=== PATIENT | female | born 1985 | race Hispanic/Latino ===

== ENCOUNTER 2017-01-11 06:10 | Day surgery (SDC) | payer OTHER ==
[2017-01-10 09:51] VITALS: BMI 18.3
[2017-01-11] MEDS ORDERED: Lidocaine Hydrochloride 5 ML INJ ONE (07:55)
[2017-01-11] MEDS ORDERED: Propofol 10 mg/ml Inj (20 ML) ONE (07:55)
[2017-01-11] MEDS ORDERED: Midazolam 2 MG/2 ML VIAL ONE (07:55)
[2017-01-11] MEDS ORDERED: Lactated Ringer's 500 ML IV ONE ×2 (08:20)
[2017-01-11] MEDS ORDERED: Oxycodone/Acetaminophen 5/325 mg Tab PO PRN (09:02)
--- NOTE | 2017-01-11 09:02 | PCM.SURG1 ---
Surgeon's Initial Post Op Note - Surgeon's Notes Surgeon: Steven Ramirez MD [employer] Press Setter Operator: none Type of Anesthesia: General LMA Pre-Operative Diagnosis: Missed 7 weeks Operative Findings: anterverted uterus 7-9 weeks, no adenxal masses, moderate amoutns of products of conception, good hemostasis Post-Operative Diagnosis: same as above Operation Performed: Suction Dilation and Curettage Specimen/Specimens Removed: products of conception Estimated Blood Loss: EBL {In ML}: 5 Blood Products Given: N/A Drains Used: No Drains, Chest Tubes Post-Op Condition: Good Date of Surgery/Procedure: 01/11/17 Time of Surgery/Procedure: 08:30
--- NOTE | 2017-01-11 11:04 | OP ---
PROCEDURE DATE: 01/11/2017 SURGEON: Dr. Janeth Ramirez DUST MOP MAKER: None. TYPE OF ANESTHESIA: General LMA. PREOPERATIVE DIAGNOSIS: Missed , 7 weeks. POSTOPERATIVE DIAGNOSIS: Missed , 7 weeks. OPERATIVE FINDINGS: Anteverted uterus, 7-9 weeks. No adnexal masses. Moderate amount of products o f conception. Good hemostasis. OPERATION PERFORMED: Suction dilation and curettage. SPECIMEN REMOVED: Products of conception. ESTIMATED BLOOD LOSS: 5 mL. BLOOD PRODUCTS: None. COMPLICATIONS: None. URINE OUTPUT: 30 mL of clear yellow urine. The patient was taken to the operating room where she was given general anesthesia. Once this was fo und be adequate, she was positioned on the operating table in dorsal supine position with the legs iniguez pported using stirrups. The patient was then prepped and draped in the usual normal sterile fashion. A timeout confirmed correct patient and correct procedure. Bimanual exam was performed with above- mentioned findings. A red rubber catheter was inserted into the urethra to drain the bladder. Mena retractor was placed in the anterior, posterior fornix of vagina and the cervix was adequately visual ized. A Teale tenaculum was placed in the anterior lip of the cervix and the uterus was then sounded to 8 cm. Following this, the cervix was sequentially dilated with the Gunnar dilators to allow for in troduction of the 7 mm curved suction curette, which was advanced to the fundus. The suction curetta ge was then activated and rotated 360 degrees. This was done 3 times until products of conceptions w ere removed. Following this, a gentle curettage was done 360 degrees and then following this, the iniguez ction curette was then reinserted and rotated 360 degrees until all products were removed and air el bles were noted within the curette. Following this, the Teale tenaculum was removed. There was good hemostasis noted at all sites. Bimanual exam was performed. Uterus was found to be firm. All inst ruments were removed. At the end of the procedure, all needle, sponge and instrument counts were not ed to be correct x 2. The patient tolerated the procedure well and was transferred to the [facility] in stable condition. Janeth Ramirez MD cc: [id number] TT: 01/11/2017 11:04:27 en
[2017-01-11 11:50] VITALS: BP 100/51; PULSE 62; RESP 16; TEMP 98.2; O2SAT 100
== END 2017-01-11 12:00 | disposition home or self-care (01) ==
LOC: C.SDS 06:10
PROVIDERS: ATTEND Obstetrics & Gynecology
DX: O02.1 Missed abortion (principal)
CPT/HCPCS: 36415; 59820; 86850; 86900; 88233; 88262; 88305; J2210; J2250; J2270; J2405; J2704; J3010; J7120